=== PATIENT | male | born 1945 | race Caucasian/White ===

== ENCOUNTER 2021-03-25 14:17 | Emergency (ER) | payer MEDICARE, OTHER ==
[2021-03-25] MEDS ORDERED: Sodium Chloride 0.9% 10 ML Syringe FLUSH PRN (14:35)
[2021-03-25] MEDS ORDERED: Meclizine 25 MG Tab PO STA (14:42)
[2021-03-25] MEDS ORDERED: Sodium Chloride 0.9% 1,000 ML IV SCH (14:45)
--- NOTE | 2021-03-25 14:59 | EDM.PDOC ---
ED HPI GENERAL MEDICAL PROBLEM - General Chief Complaint: General Stated Complaint: LOW BP Time Seen by Provider: 03/25/21 14:25 Source of Information: Reports: Patient History Limitations: Reports: No Limitations - History of Present Illness INITIAL COMMENTS - FREE TEXT/NARRATIVE: Patient is a 75 YO WM who presented to the ED because of dizziness,weakness, fatigue for 3 days. He said he feels dizzy as soon as he gets up " I feel like I'm floating". There is no associated chest pain, palpitations, nausea, vomiting, diarrhea. No fever, chills but has a chronic smokers cough. Denies having any weakness of the upper or lower extremities - Related Data Allergies Allergy/AdvReac Type Severity Reaction Status Date / Time No Known Allergies Allergy Verified 03/25/21 16:00 Home Meds: Home Meds Digoxin 250 mcg PO DAILY 03/25/21 [History] Ferrous Sulfate [Ferosul] 325 mg PO DAILY 03/25/21 [History] Warfarin [Coumadin] 5 mg PO ASDIRECTED 03/25/21 [History] atorvaSTATin [Lipitor] 0.5 tab PO BEDTIME 03/25/21 [History] lisinopriL [Lisinopril] 10 mg PO DAILY 03/25/21 [History] predniSONE [Prednisone] 5 mg PO DAILY 03/25/21 [History] sulfaSALAzine 500 mg PO BID 03/25/21 [History] ED ROS GENERAL - Review of Systems Review Of Systems: See Below Constitutional: Reports: Weakness, Fatigue HEENT: Reports: No Symptoms Respiratory: Reports: Cough Cardiovascular: Reports: No Symptoms Endocrine: Reports: No Symptoms GI/Abdominal: Reports: No Symptoms : Reports: No Symptoms Musculoskeletal: Reports: No Symptoms Skin: Reports: No Symptoms Neurological: Reports: No Symptoms Psychiatric: Reports: No Symptoms ED EXAM, GENERAL - Physical Exam Exam: See Below Exam Limited By: No Limitations General Appearance: Alert, No Apparent Distress Eye Exam: Bilateral Eye: PERRL Ears: Normal External Exam, Normal Canal Nose: Normal Inspection, Normal Mucosa, No Blood Throat/Mouth: Normal Inspection, Normal Lips, Normal Teeth Head: Atraumatic, Normocephalic Neck: Normal Inspection, Supple, Non-Tender, Full Range of Motion Respiratory/Chest: No Respiratory Distress, Lungs Clear, Normal Breath Sounds, No Accessory Muscle Use, Chest Non-Tender Cardiovascular: Normal Peripheral Pulses, Regular Rate, Rhythm, No Edema, No Gallop GI/Abdominal: Normal Bowel Sounds, Soft, Non-Tender, No Organomegaly, No Distention, No Abnormal Bruit, No Mass Back Exam: Normal Inspection, Full Range of Motion Extremities: Normal Inspection, Normal Range of Motion, Non-Tender, No Pedal Edema, Normal Capillary Refill Neurological: Alert, Oriented, CN II-XII Intact, Normal Cognition, Normal Gait, Normal Reflexes, No Motor/Sensory Deficits #1 Interpretation EKG Date: 03/25/21 Time: 14:44 Rhythm: A-Fib Rate (Beats/Min): 94 [place]: Normal P-Wave: Present QRS: Normal ST-T: Normal QT: Normal Comparison: NA - No Prior EKG EKG Interpretation Comments: NSR ST dep/flat T waves-ant/lat/inf Course - Vital Signs Text/Narrative:: Lab,EKG,CXR and Head CT result was reviewed and discussed with patient. NS 500 ml bolus Meclizine 25 mg PO x1 Vit K 5 mg IV x 1 Code Status: Full Code Covid test:negative Case was discussed with Dr Bacon Last Recorded V/S: Last Vital Signs Temp 37.2 C 03/25/21 14:17 Pulse 93 03/25/21 14:17 Resp 20 03/25/21 14:17 BP 111/66 03/25/21 14:17 Pulse Ox 96 03/25/21 14:17 - Orders/Labs/Meds Orders: Active Orders 24 hr Category Date Time Status EKG Documentation Completion [RC] ASDIRECTED Care 03/25/21 14:36 Active Chest w wo Cont [CT] Stat Exams 03/25/21 15:53 Taken Nicotine [Habitrol] Med 03/25/21 17:15 Ordered 21 mg TRDERM DAILY Phytonadione [AquaMephyton] 5 mg Med 03/25/21 16:52 Ordered Sodium Chloride 0.9% [Normal Saline] 50 ml IV NOW Sodium Chloride 0.9% [Normal Saline] 1,000 ml Med 03/25/21 14:45 Active IV ASDIRECTED Sodium Chloride 0.9% [Saline Flush] Med 03/25/21 14:35 Active 10 ml FLUSH ASDIRECTED PRN Saline Lock Insert [OM.PC] Routine Oth 03/25/21 14:35 Ordered EKG 12 Lead [EK] Routine Ther 03/25/21 14:35 Ordered Medication Orders Sodium Chloride (Normal Saline) 1,000 mls @ 125 mls/hr IV ASDIRECTED ALEXA Last Admin: 03/25/21 14:17 Dose: 125 mls/hr Documented by: RAJNI Phytonadione 5 mg/ Sodium (Chloride) 50.5 mls @ 100 mls/hr IV NOW ONE Stop: 03/25/21 17:22 Last Admin: 03/25/21 17:06 Dose: 100 mls/hr Documented by: Nicotine (Nicotine 21 Mg/24 Hr Patch) 21 mg TRDERM DAILY ALEXA Sodium Chloride (Sodium Chloride 0.9% 10 Ml Syringe) 10 ml FLUSH ASDIRECTED PRN PRN Reason: Keep Vein Open Labs: Laboratory Tests 03/25/21 03/25/21 03/25/21 Range/Units 15:30 15:30 15:30 WBC 10.2 H (3.2-10.1) x10-3/uL RBC 2.19 L (3.90-5.90) x10(6)uL Hgb 6.1 L* (12.9-17.7) g/dL Hct 18.7 L* (38.3-50.1) % MCV 85.3 (80.8-98.7) fL MCH 27.8 (27.0-33.3) pg MCHC 32.6 (28.7-35.3) g/dL RDW 15.9 H (12.4-15.0) % Plt Count 442 (117-477) x10(3)uL MPV 6.0 L (6.7-11.0) fL Neut % (Auto) 84.7 H (40.3-71.8) % Lymph % (Auto) 7.5 L (15.8-45.3) % [place] % (Auto) 7.3 (5.5-15.2) % Eos % (Auto) 0.1 (0.1-6.8) % Baso % (Auto) 0.4 (0.3-3.8) % Neut # (Auto) 8.7 H (1.7-6.9) x10-3/uL Lymph # (Auto) 0.8 (0.5-4.5) x10-3/uL [place] # (Auto) 0.7 (0.0-1.2) x10-3/uL Eos # (Auto) 0.0 (0.0-0.6) x10-3/uL Baso # (Auto) 0.0 (0.0-0.3) x10-3/uL PT (9.0-11.1) sec INR (1.00-1.24) Sodium 139 (135-145) mmol/L Potassium 4.6 (3.5-5.3) mmol/L Chloride 102 (100-110) mmol/L Carbon Dioxide 27 (21-32) mmol/L BUN 26 H (7-18) mg/dL Creatinine 1.0 (0.70-1.30) mg/dL Est Cr Clr Drug Dosing 76.49 mL/min Estimated GFR (MDRD) > 60 (>60) BUN/Creatinine Ratio 26.0 H (9-20) Glucose 113 (80-116) mg/dL Calcium 9.4 (8.6-10.2) mg/dL Total Bilirubin 0.4 (0.1-1.3) mg/dL AST 14 (5-25) IU/L ALT 16 (12-36) U/L Alkaline Phosphatase 83 (56-112) IU/L Troponin I 15.9 (4.0-60.3) pg/mL NT-Pro-B Natriuret Pep (<=125) pg/mL Total Protein 6.4 (6.0-8.0) g/dL Albumin 2.6 L (3.2-4.6) g/dL Globulin 3.8 g/dL Albumin/Globulin Ratio 0.7 SARS-CoV-2 RNA ([facility]) (NEGATIVE) 03/25/21 03/25/21 03/25/21 Range/Units 15:30 15:30 15:37 WBC (3.2-10.1) x10-3/uL RBC (3.90-5.90) x10(6)uL Hgb (12.9-17.7) g/dL Hct (38.3-50.1) % MCV (80.8-98.7) fL MCH (27.0-33.3) pg MCHC (28.7-35.3) g/dL RDW (12.4-15.0) % Plt Count (117-477) x10(3)uL MPV (6.7-11.0) fL Neut % (Auto) (40.3-71.8) % Lymph % (Auto) (15.8-45.3) % [place] % (Auto) (5.5-15.2) % Eos % (Auto) (0.1-6.8) % Baso % (Auto) (0.3-3.8) % Neut # (Auto) (1.7-6.9) x10-3/uL Lymph # (Auto) (0.5-4.5) x10-3/uL [place] # (Auto) (0.0-1.2) x10-3/uL Eos # (Auto) (0.0-0.6) x10-3/uL Baso # (Auto) (0.0-0.3) x10-3/uL PT > 100.0 H* (9.0-11.1) sec INR > 3.99 H* (1.00-1.24) Sodium (135-145) mmol/L Potassium (3.5-5.3) mmol/L Chloride (100-110) mmol/L Carbon Dioxide (21-32) mmol/L BUN (7-18) mg/dL Creatinine (0.70-1.30) mg/dL Est Cr Clr Drug Dosing mL/min Estimated GFR (MDRD) (>60) BUN/Creatinine Ratio (9-20) Glucose (80-116) mg/dL Calcium (8.6-10.2) mg/dL Total Bilirubin (0.1-1.3) mg/dL AST (5-25) IU/L ALT (12-36) U/L Alkaline Phosphatase (56-112) IU/L Troponin I (4.0-60.3) pg/mL NT-Pro-B Natriuret Pep 1249 H* (<=125) pg/mL Total Protein (6.0-8.0) g/dL Albumin (3.2-4.6) g/dL Globulin g/dL Albumin/Globulin Ratio SARS-CoV-2 RNA ([facility]) Negative (NEGATIVE) Meds: Medications Generic Name Dose Route Start Last Admin Trade Name Freq PRN Reason Stop Dose Admin Sodium Chloride 1,000 mls @ 125 mls/hr 03/25/21 14:45 03/25/21 14:17 Normal Saline IV 125 mls/hr ASDIRECTED ALEXA Administration Phytonadione 5 mg/ Sodium 50.5 mls @ 100 mls/hr 03/25/21 16:52 03/25/21 17:06 Chloride IV 03/25/21 17:22 100 mls/hr NOW ONE Administration Nicotine 21 mg 03/25/21 17:15 Nicotine 21 Mg/24 Hr Patch TRDERM DAILY ALEXA Sodium Chloride 10 ml 03/25/21 14:35 Sodium Chloride 0.9% 10 Ml Syringe FLUSH ASDIRECTED PRN Keep Vein Open Discontinued Medications Generic Name Dose Route Start Last Admin Trade Name Freq PRN Reason Stop Dose Admin Iopamidol 75 ml 03/25/21 15:59 Iopamidol 755 Mg/Ml 75 Ml Bottle IV 03/25/21 16:00 ONETIME ONE Meclizine HCl 25 mg 03/25/21 14:42 03/25/21 15:46 Meclizine 25 Mg Tab PO 03/25/21 14:43 25 mg NOW STA Administration Departure - Departure Time of Disposition: 17:00 Disposition: Home, Self-Care 01 Condition: Good Clinical Impression: Anemia, Lung mass, Elevated INR, CHF (congestive heart failure), Afib - Discharge Information Referrals: Reymundo Rm MD [Primary Care Provider] - Forms: ED Department Discharge Sepsis Event Note (ED) - Evaluation Sepsis Screening Result: No Definite Risk - Focused Exam Vital Signs: Vital Signs Temp Pulse Resp BP Pulse Ox 03/25/21 14:17 37.2 C 93 20 111/66 96 - My Orders Last 24 Hours: My Active Orders 03/25/21 14:35 Sodium Chloride 0.9% [Saline Flush] 10 ml FLUSH ASDIRECTED PRN Saline Lock Insert [OM.PC] Routine EKG 12 Lead [EK] Routine 03/25/21 14:36 EKG Documentation Completion [RC] ASDIRECTED 03/25/21 14:45 Sodium Chloride 0.9% [Normal Saline] 1,000 ml IV ASDIRECTED 03/25/21 15:53 Chest w wo Cont [CT] Stat 03/25/21 16:52 Phytonadione [AquaMephyton] 5 mg Sodium Chloride 0.9% [Normal Saline] 50 ml IV NOW 03/25/21 17:15 Nicotine [Habitrol] 21 mg TRDERM DAILY - Assessment/Plan Last 24 Hours: My Active Orders 03/25/21 14:35 Sodium Chloride 0.9% [Saline Flush] 10 ml FLUSH ASDIRECTED PRN Saline Lock Insert [OM.PC] Routine EKG 12 Lead [EK] Routine 03/25/21 14:36 EKG Documentation Completion [RC] ASDIRECTED 03/25/21 14:45 Sodium Chloride 0.9% [Normal Saline] 1,000 ml IV ASDIRECTED 03/25/21 15:53 Chest w wo Cont [CT] Stat 03/25/21 16:52 Phytonadione [AquaMephyton] 5 mg Sodium Chloride 0.9% [Normal Saline] 50 ml IV NOW 03/25/21 17:15 Nicotine [Habitrol] 21 mg TRDERM DAILY
[2021-03-25] MEDS ORDERED: Iopamidol 755 Mg/ML 75 ML Bottle IV ONE (15:59)
--- NOTE | 2021-03-25 16:13 | CR ---
INDICATION: Weakness. Cough. Smoker, 2 packs a day for 50 years. No previous history of Covid-19, vaccinated. The patient was vaccinated with a second dose in October of this year. CHEST, PA AND LATERAL: Two PA views and a lateral view of the chest were obtained 03/25/21 and compared with 02/04/13. The heart appeared normal in size and shape. The aorta is calcified in the arch and descending portion. Bridging hyperostotic changes are noted in the mid to lower thoracic spine. Findings compatible with COPD are noted. Areas of consolidating pneumonia are noted in both upper lung rico which appear to be in the upper lobes, upper middle laterally on the right and upper laterally on the left with densities extending into the suprahilar area on the left and to a lesser degree on the right also. These areas of dense infiltration could be related to a process such as Covid-19 pneumonia but should be correlated clinically. There is also a small nodular-appearing density infrahilar on the left measuring approximately 11 mm of questionable significance. It could represent a focal area of minimal pneumonia or scar. IMPRESSION: 1. Bilateral areas of consolidating infiltrate which may represent pneumonia possibly a process such as Covid-19. Neoplasia is felt to be less likely. Follow-up to clearing is recommended. 2. COPD. 3. ASD aorta. 4. DJD spine. 5. Possible nodular density lower lung field - infrahilar on the left. Follow- up may also be warranted in that area. Follow-up CT Chest shows the nodular appearing density to be secondary to nipple shadow. Report was called to Dr. Viramontes at 1548 hours. [facility]
--- NOTE | 2021-03-25 16:22 | CT ---
INDICATION: Weakness. History of CVA. CT OF THE HEAD WITHOUT CONTRAST: Spiral 3.75 mm axial sections were obtained through the brain without contrast with axial, sagittal, and coronal reconstructions 03/25/21 - no comparisons. Total exam DLP was 735.37 milligray- cm. The orbits appear to be intact. The paranasal sinuses and mastoid air cells appeared well aerated. The cranium appears to be intact. No shift of midline structures was present. The bellamy-white matter interface appears to be intact. The ventricles and sulci mainly in the area of the Sylvian fissures appear to be somewhat prominent suggesting areas of atrophy centrally and in the temporal lobes. Patchy areas of decreased density in the white matter are compatible with moderate to moderately severe microvascular disease. There is a large area of encephalomalacia in the left occipital lobe medially at the midline. This is compatible with history of a previous stroke. No definite acute intracranial abnormality was identified - no bleeding site or hematoma was seen. IMPRESSION: 1. No definite acute intracranial abnormality. 2. 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 3. Microvascular disease type changes in the white matter with internal carotid artery calcifications most compatible with cerebrovascular disease - other cause of leukoencephalopathy cannot be excluded. 4. Some atrophy is noted in the temporal lobes especially on the right and to a mild degree centrally. Report was called to Dr. Viramontes at 1548 hours. [facility]
[2021-03-25] MEDS ORDERED: Phytonadione 5 MG in Sodium Chloride 0.9% 50 ML IV ONE (16:52)
[2021-03-25] MEDS ORDERED: Nicotine 21 MG/24 Hr Patch TRDERM SCH (17:15)
--- NOTE | 2021-03-25 17:18 | CT ---
INDICATION: Abnormal chest x-ray, question malignancy. CT CHEST WITHOUT AND WITH CONTRAST [id number]: Spiral 3.75 mm axial sections were obtained through the chest without and with 75 mL [id number] at 2 mL/second with sagittal and coronal reconstructions 03/25/21-no comparison CTs. TOTAL EXAM DLP: 1792.1 mGy/cm. There are significant areas of infiltrate, which are pleural based, measuring on the right a maximum diameter of approximately 8.0 cm and on the left a maximum of approximately 12.0 cm in the upper lobes anteriorly and superiorly. There are relatively dense areas of infiltrate becoming somewhat less consolidated as they extend into the lung toward the geeta. Strands of density actually reach the suprahilar area and hilum on the left. The Hounsfield unit densities increase significantly with contrast suggesting significant contrast enhancement. This can be seen with neoplasia certainly and makes it difficult to exclude malignancy in this patient with significant smoking history. Mediastinal lymphadenopathy is noted with somewhat enlarged lymph nodes, the largest approximately 15 mm precarinal in location. The infiltration extends in a spiculated fashion from the right-sided area of consolidation and also on the left. The upper abdomen included in the study appeared unremarkable except for calcifications in the aorta, right renal artery and splenic artery, as well as the superior mesenteric artery. IMPRESSION: 1. Areas of pleural based consolidation, which contrast enhance significantly making it difficult to exclude malignancy in this patient with strong history of smoking. Further workup may be warranted depending upon clinical correlation- needle aspiration biopsy could be obtained. 2. ASD. Report was called to Dr. Viramontes at 1647 hours. [facility]
== END 2021-03-25 18:30 ==
LOC: FB.ED 14:17
DX: I48.91 Unspecified atrial fibrillation (principal); I50.9 Heart failure, unspecified; D64.9 Anemia, unspecified; R91.8 Other nonspecific abnormal finding of lung field; R79.1 Abnormal coagulation profile; Z79.01 Long term (current) use of anticoagulants; Z79.899 Other long term (current) drug therapy; Z20.822 Contact with and (suspected) exposure to COVID-19
CPT/HCPCS: 36415; 70450; 71046; 71270; 80053; 83880; 84484; 85025; 85610; 93005; 96365; 99285-25; A9270-GY; J3430; J7030; Q9967; U0002

== ENCOUNTER 2021-09-09 14:57 | Observation (INO) | payer MEDICARE ==
[2021-09-09] MEDS ORDERED: Sodium Chloride 0.9% 1,000 ML IV ONE (15:15)
[2021-09-09 16:21] LABS: CORONAVIRUS COVID-19 NAA POSITIVE (NEGATIVE)
[2021-09-09] MEDS ORDERED: Ondansetron 4 MG/2 ML SDV IV PRN (18:04)
[2021-09-09] MEDS ORDERED: Sodium Chloride 0.9% 1,000 ML IV SCH (18:15)
[2021-09-09] MEDS ORDERED: PROCHLORPERAZINE 10 MG PO PRN (20:01)
[2021-09-09] MEDS: Potassium Chloride 10 MEQ Tab.ER **OWN MED PO SCH (22:00)
[2021-09-09] MEDS: [UNRECOGNIZED DRUG - REMARK] PO SCH (22:00)
[2021-09-09] MEDS: Apixaban 5 MG Tab **OWN MED PO SCH (22:00)
[2021-09-09] MEDS ORDERED: ATORVASTATIN 20 MG PO SCH (22:30)
[2021-09-09] MEDS ORDERED: Acetaminophen 500 MG Tab PO PRN (23:22)
[2021-09-09] MEDS ORDERED: Dextrose 5%-0.9% NaCl 1,000 ML IV SCH (23:30)
[2021-09-09] MEDS: Acetaminophen/HYDROcodone 325-5 MG Tab PO PRN (23:38)
[2021-09-10] MEDS ORDERED: Dextrose 5%-0.9% NaCl 1,000 ML IV SCH (07:20)
[2021-09-10] MEDS: Acetaminophen/HYDROcodone 325-5 MG Tab PO PRN (07:27)
[2021-09-10] MEDS ORDERED: Iopamidol 755 Mg/ML 75 ML Bottle IV ONE (08:11)
[2021-09-10] MEDS ORDERED: predniSONE 5 MG Tab *PTOM PO SCH (09:00)
[2021-09-10] MEDS ORDERED: Ferrous Sulfate 325 MG Tab *PTOM PO SCH (09:00)
[2021-09-10] MEDS ORDERED: Megestrol 40 MG Tab PO SCH (09:00)
[2021-09-10] MEDS ORDERED: Digoxin 250 MCG Tab PO SCH (09:00)
[2021-09-10] MEDS ORDERED: Folic Acid 1 MG Tab *PTOM PO SCH (09:00)
[2021-09-10] MEDS: Potassium Chloride 10 MEQ Tab.ER **OWN MED PO SCH (09:21)
[2021-09-10] MEDS: [UNRECOGNIZED DRUG - REMARK] PO SCH (09:23)
[2021-09-10] MEDS: Apixaban 5 MG Tab **OWN MED PO SCH (09:24)
== END 2021-09-10 09:55 ==
LOC: FB.ED 14:57 → FB.MS 18:04
PROVIDERS: ADMIT Emergency Medicine; ATTEND Family Medicine
DX: U07.1 COVID-19 (principal); R09.02 Hypoxemia; E78.00 Pure hypercholesterolemia, unspecified; I48.91 Unspecified atrial fibrillation; I50.9 Heart failure, unspecified; I11.0 Hypertensive heart disease with heart failure; I25.2 Old myocardial infarction; J44.9 Chronic obstructive pulmonary disease, unspecified; F17.210 Nicotine dependence, cigarettes, uncomplicated; D64.9 Anemia, unspecified; E86.0 Dehydration; R91.8 Other nonspecific abnormal finding of lung field; Z79.899 Other long term (current) drug therapy; Z86.73 Personal history of transient ischemic attack (TIA), and cerebral infarction without residual deficits; Z98.890 Other specified postprocedural states
CPT/HCPCS: 0240U; 36415; 71045; 71275; 80048; 80053; 80162; 83605; 83880; 84484; 85025; 85610; 87040; 93005; 94150; A9270-GY; J7030; J7512; Q0164; Q9967